=== PATIENT | male | born 1950 | race Two or more races ===

== ENCOUNTER 2021-06-13 22:28 | Emergency (ER) | payer MEDICARE, BC ==
[~2021-06-13] VITALS: Ht 170.2 cm; Wt 83.9 kg
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
[2021-06-13] MEDS ORDERED: TDAP [DIPH/PERTUSSIS/TET] 0.5 ML VIAL IM ONE ×2 (22:49→23:00)
[2021-06-13] MEDS ORDERED: HYDROCODONE/APAP 5/325MG TABLET ONE (22:49)
[2021-06-13] MEDS ORDERED: HYDROCODONE/APAP 5/325MG TABLET PO ONE (23:00)
[2021-06-13] MEDS ORDERED: HYDR-3972 PO ×2 (23:17→23:25)
--- NOTE | 2021-06-13 23:31 | NUR ---
Patient discharged to home in stable condition. Written and verbal after care instructions given. Patient verbalizes understanding of instruction. PT ambulatory with a steady gait. Dressing applied to right hand
[2021-06-13 23:37] VITALS: BP 159/84
== END 2021-06-13 23:37 | disposition home or self-care (01) ==
LOC: ER 22:54
DX: T23.202A Burn of second degree of left hand, unspecified site, initial encounter (principal); T79.9XXA Unspecified early complication of trauma, initial encounter; Z87.11 Personal history of peptic ulcer disease; Z79.891 Long term (current) use of opiate analgesic; X13.1XXA Other contact with steam and other hot vapors, initial encounter; Y93.89 Activity, other specified; Y92.89 Other specified places as the place of occurrence of the external cause; Y99.8 Other external cause status
CPT/HCPCS: 90715